=== PATIENT | male | born 1980 | race Two or more races ===

== ENCOUNTER 2020-06-26 12:06 | Inpatient (IN) | payer BC ==
[~2020-06-26] VITALS: Ht 167.6 cm; Wt 74.8 kg
--- NOTE | 2020-06-26 12:06 | NUR ---
PT BIBRA FROM HOME C/O ABDOMINAL PAIN AND NAUSEA/VOMITING STARTED YESTERDAY. PT IS AAOX4, NOT IN RESPIRATORY DISTRESS, HOOKED TO CARPENTRY TEACHER, KEPT RESTED AND COMFORTABLE. WILL CONTINUE TO MONITOR.
--- NOTE | 2020-06-26 12:13 | NUR ---
SEEN AND EXAMINED BY .
[2020-06-26] MEDS ORDERED: ONDANSETRON HCL/PF 4 MG/2 ML VIAL ONE (12:17)
--- NOTE | 2020-06-26 12:22 | NUR ---
IV LINE ESTABLISHED BLOOD DRAWN AND SENT TO LAB.
[2020-06-26] MEDS ORDERED: ONDANSETRON HCL/PF 4 MG/2 ML VIAL IVP ONE (12:30)
[2020-06-26] MEDS ORDERED: IV NS 0.9% 1,000 ML BAG IV ONE (12:30)
--- NOTE | 2020-06-26 12:32 | NUR ---
URINAL GIVEN BUT UNABLE TO PROVIDE URIEN SPECIMEN THIS TIME.
[2020-06-26 12:33] LABS: MONOCYTES # (AUTO) 0.4 /CMM (0.1-1.30); NEUTROPHILS # (AUTO) 3.1 /CMM (1.8-8.9)
[2020-06-26 12:45] LABS: ACETAMINOPHEN < 10 ug/ml (10-30); ALANINE AMINOTRANSFERASE 111 U/L (12-78); ALBUMIN 4.2 g/dL (3.4-5.0); ALCOHOL, BLOOD 146 mg/dL (0-0); ALKALINE PHOSPHATASE 106 U/L (46-116); ASPARTATE AMINOTRANSFERASE 167 U/L (15-37); BILIRUBIN,DIRECT 0.3 mg/dL (0.0-0.2); BILIRUBIN,TOTAL 1.2 mg/dL (0.2-1.0); CALCIUM, SERUM 8.8 mg/dL (8.5-10.1); CARBON DIOXIDE 14 mmol/L (21-32); CHLORIDE 95 mmol/L (98-107); CREATININE 1.1 mg/dL (0.6-1.3); GLUCOSE 76 mg/dL (74-106); POTASSIUM 3.6 mmol/L (3.5-5.1); SODIUM SERUM 137 mmol/L (136-145); UREA NITROGEN, BLOOD 9 mg/dL (7-18)
[2020-06-26] MEDS ORDERED: LORAZEPAM INJ 2 MG/ML VIAL IV ONE (13:00)
[2020-06-26 13:01] LABS: EOSINOPHILS % (AUTO) 0.1 % (0.0-6.0); HEMATOCRIT 45 % (39-51); HEMOGLOBIN 14.9 g/dL (13.5-17.5); LYMPHOCYTES # (AUTO) 0.4 /CMM (0.8-4.8); LYMPHOCYTES % (AUTO) 9.2 % (20.0-44.0); MEAN CORPUSCULAR HGB CONC 33 g/dl (31.0-36.0); MEAN CORPUSCULAR VOLUME 97 fL (80-96); MONOCYTES % (AUTO) 9.8 % (2.0-12.0); NEUTROPHILS % (AUTO) 79.9 % (43.0-81.0); PLATELET COUNT (AUTO) 101 /CMM (150-450); RED BLOOD CELL COUNT(AUTO) 4.63 MIL/uL (4.5-6.0); WHITE BLOOD COUNT (AUTO) 3.9 K/uL (4.3-11.0)
[2020-06-26] MEDS ORDERED: LORAZEPAM INJ 2 MG/ML VIAL ONE (13:12)
[2020-06-26] MEDS ORDERED: LAMO200T2 PO (13:21)
--- NOTE | 2020-06-26 13:46 | NUR ---
PANEL ON-CALL PAGED
[2020-06-26] MEDS ORDERED: MAGNESIUM HYDROXIDE 30 ML UDC PO PRN (14:30)
[2020-06-26] MEDS ORDERED: ACETAMINOPHEN 325 MG TABLET PO PRN (14:30)
[2020-06-26] MEDS ORDERED: MAG HYDROX/AL HYDROX/SIMETH 30 ML UDC PO PRN (14:30)
[2020-06-26] MEDS ORDERED: ONDANSETRON HCL/PF 4 MG/2 ML VIAL IVP PRN (14:30)
--- NOTE | 2020-06-26 14:56 | NUR ---
[facility] BED 304-1 ALEX IS RN
--- NOTE | 2020-06-26 14:56 | NUR ---
received a call from the ab regarding covid 19 result "negative".
[2020-06-26] MEDS ORDERED: CLONIDINE HCL 0.1 MG TABLET PO PRN (15:00)
--- NOTE | 2020-06-26 15:02 | NUR ---
REPORT GIVEN TO COURTNEY DALTON FOR MELANI.
[2020-06-26 15:13] LABS: BILIRUBIN,URINE Negative (NEGATIVE); COLOR,URINE YELLOW (YELLOW); LEUKOCYTE ESTERASE ,URINE Negative (NEGATIVE); NITRITE, URINE Negative (NEGATIVE); PH,URINE 5.5 (5.0-8.0); PROTEIN,URINE 30 mg/dl (NEGATIVE); UGLUCOSE Negative (NEGATIVE); UROBILINOGEN,URINE 0.2 EU/dL (0.2)
[2020-06-26 15:19] LABS: BACTERIA,URINE None seen /HPF (None Seen); HYALINE CASTS, URINE Few /LPF (None Seen); RBC,URINE 0-2 /HPF (0-2); SQUAMOUS EPITHELIAL CELL,UR Few /HPF (None Seen); WBC,URINE 0-2 /HPF (0-3)
[2020-06-26 15:40] VITALS: BP 145/68
--- NOTE | 2020-06-26 15:47 | NUR ---
MS EGG SETTER NOTE RECEIVED PATIENT VIA GURNEY. PATIENT IS A/O X 4. PATIENT IS BREATHING EVENLY AND UNLABORED ON ROOM AIR. NO SIGNS OF DISTRESS NOTED. PATIENT HAS IV ACCESS ON R HAND 20 GAUGE PATENT AND INTACT FLUIDS NS @75ML/HR. SKIN IS INTACT WITH SOME BRUISING PHOTOS TAKEN. PATIENT HAS SOME MILD SHAKING, BUT STATED IT HAS GOTTEN BETTER. PATIENT WAS ORIENTED TO THE ROOM AND HOW CALL LIGHT WORKS. BELONGINGS WERE ACCOUNTED FOR PEPPER SPRAY AND KNIFE PUT IN SAFE. SAFETY MEASURES ARE IN PLACE BED LOW LOCKED AND CALL LIGHT WITHIN REACH. WILL CONTINUE TO MONITOR
[2020-06-26] MEDS: FOLIC ACID 1 MG TABLET PO SCH (15:59)
[2020-06-26] MEDS: MULTIVITAMINS,THERAGRAN 1 UDTAB TABLET PO SCH (15:59)
[2020-06-26] MEDS: THIAMINE HCL 100 MG TABLET PO SCH (15:59)
[2020-06-26 16:38] VITALS: BP 145/68
[2020-06-26] MEDS: HYDROCODONE/APAP 5/325MG TABLET PO PRN ×2 (17:38→23:11)
--- NOTE | 2020-06-26 17:44 | NUR ---
RN NOTE PATIENT COMPLAINED OF PAIN IN THE RIGHT ANKLE 09/02. PRN PAIN MEDICATION WAS ADMINISTERED ORDER.
--- NOTE | 2020-06-26 18:31 | NUR ---
MS RN CLOSING NOTES PATIENT IS IN BED RESTING. PATIENT IS A/O X 4. PATIENT IS BREATHING EVENLY AND UNLABORED ON ROOM AIR. NO SIGNS OF DISTRESS NOTED. PATIENT HAS IV ACCESS ON R HAND 20 GAUGE PATENT AND INTACT FLUIDS NS @75ML/HR. SKIN IS INTACT WITH SOME BRUISING. PATIENT HAS SOME MILD SHAKING, BUT STATED IT HAS GOTTEN BETTER. PATIENT'S MEDICATION GIVEN AND NEEDS MET. SAFETY MEASURES ARE IN PLACE BED LOW LOCKED AND CALL LIGHT WITHIN REACH. WILL ENDORSE TO EVENING SHIFT
[2020-06-26 20:00] VITALS: BP 141/80
--- NOTE | 2020-06-26 20:01 | NUR ---
MS RN OPENING NOTE RECEIVED PT AWAKE IN BED. A/O X4. PT STABLE ON ROOM AIR. NO SOB NOTED. NO S/S OF RESPIRATORY DISTRESS. PT IS AMBULATORY WITH BRP. PT HAS NO C/O PAIN AT THIS TIME. IV ACCESS IN RIGHT HAND #20G, NS RUNNING @ 75 ML/HR. IV IS INTACT AND PATENT. SAFETY MEASURES MAINTAINED. BED IN LOWEST LOCKED POSITION, HOB ELEVATED, SIDE RAILS UP X2. CALL LIGHT AND TABLE WITHIN REACH. WILL CONTINUE WITH PLAN OF CARE.
--- NOTE | 2020-06-26 23:11 | NUR ---
MS RN PAIN PT C/O ACHING PAIN IN THE RIGHT ANKLE, RATED 6/10 ON PAIN SCALE. VS BP 140/81, HR 90, RR 19, T 99.1, SPO2 95%. PER PT REQUEST, ADMINISTERED NORCO 5-325 MG PO Q4H PRN AT THIS TIME. WILL CONTINUE TO MONITOR.
[2020-06-27] MEDS: LORAZEPAM INJ 2 MG/ML VIAL IV PRN ×3 (00:51→22:07)
[2020-06-27 05:59] LABS: BASOPHILS % (AUTO) 0.6 % (0.0-2.0); HEMATOCRIT 40 % (39-51); HEMOGLOBIN 13.4 g/dL (13.5-17.5); LYMPHOCYTES # (AUTO) 1.1 /CMM (0.8-4.8); LYMPHOCYTES % (AUTO) 25.9 % (20.0-44.0); MEAN CORPUSCULAR HGB CONC 33 g/dl (31.0-36.0); MEAN CORPUSCULAR VOLUME 97 fL (80-96); MONOCYTES # (AUTO) 0.4 /CMM (0.1-1.30); MONOCYTES % (AUTO) 10.7 % (2.0-12.0); NEUTROPHILS # (AUTO) 2.5 /CMM (1.8-8.9); NEUTROPHILS % (AUTO) 60.8 % (43.0-81.0); PLATELET COUNT (AUTO) 82 /CMM (150-450); RED BLOOD CELL COUNT(AUTO) 4.13 MIL/uL (4.5-6.0); WHITE BLOOD COUNT (AUTO) 4.1 K/uL (4.3-11.0)
--- NOTE | 2020-06-27 06:32 | NUR ---
MS RN CLOSING NOTE PT IS AWAKE IN BED AT THIS TIME. A/O X4. PT STABLE ON ROOM AIR. NO SOB NOTED. NO S/S OF RESPIRATORY DISTRESS. PT IS AMBULATORY WITH BRP. IV ACCESS IS INTACT AND PATENT. ALL NEEDS HAVE BEEN MET. PAIN MANAGEMENT ADMINISTERED PER ORDER. SAFETY MEASURES MAINTAINED. BED IN LOWEST LOCKED POSITION, HOB ELEVATED, SIDE RAILS UP X2. CALL LIGHT AND TABLE WITHIN REACH. WILL ENDORSE TO ONCOMING NURSE FOR CONTINUITY OF CARE.
[2020-06-27 07:46] LABS: ALBUMIN 3.4 g/dL (3.4-5.0); BILIRUBIN,TOTAL 1.7 mg/dL (0.2-1.0); CALCIUM, SERUM 8.6 mg/dL (8.5-10.1); CREATININE 0.9 mg/dL (0.6-1.3); MAGNESIUM 1.9 mg/dL (1.8-2.4); PHOSPHORUS 1.8 mg/dL (2.5-4.9); POTASSIUM 4.3 mmol/L (3.5-5.1); TOTAL PROTEIN, SERUM 6.6 g/dL (6.4-8.2)
[2020-06-27 08:00] VITALS: BP 143/79
[2020-06-27 08:11] LABS: THYROID STIMULATING HORMONE 1.15 uIU/mL (0.358-3.74)
[2020-06-27] MEDS: FOLIC ACID 1 MG TABLET PO SCH (08:27)
[2020-06-27] MEDS: MULTIVITAMINS,THERAGRAN 1 UDTAB TABLET PO SCH (08:27)
[2020-06-27] MEDS: THIAMINE HCL 100 MG TABLET PO SCH (08:27)
[2020-06-27] MEDS: LamoTRIgine 100 MG TABLET PO SCH (08:28)
--- NOTE | 2020-06-27 09:55 | NUR ---
MS RN NOTES IV SITE IV ACCESS IN RIGHT HAND #20G WAS OCCLUDED, DISCONTINUED ACCESS AND STARTED NEW ACCESS ON LEFT HAND #20G FLUSHED WITH NS.
[2020-06-27 10:15] LABS: BAND % (MANUAL) 5 % (0.0-5.0); EOSINOPHILS % (MANUAL) 3 % (0-4); LYMPHOCYTES % (MANUAL) 25 % (16-48); MONOCYTES % (MANUAL) 13 % (0-11.0); NEUTROPHILS % (MANUAL) 54 (42-76)
[2020-06-27] MEDS: HYDROCODONE/APAP 5/325MG TABLET PO PRN ×3 (11:32→20:41)
[2020-06-27] MEDS ORDERED: K PHOS NEUTRAL 250 MG TABLET PO ONE (12:30)
--- NOTE | 2020-06-27 14:11 | NUR ---
SS Consult: SS Consult requested for Alcohol Intoxication. The pt. is a 39-year-old male. DAINAL met with pt. bedside. The pt. is alert & oriented x 4. The pt. appears disheveled, dirt under nails with slight hand tremor. DANIAL completed alcohol intervention with pt. Pt. states he was sober for about 6 months and an old friend came into town 30 days ago and pt. has since relapsed as he began drinking with friend. Per pt., he drinks 1 liter of Vodka per day. Per pt. he has been an alcoholic for about 10 years. The pt. stated that he knows alcohol is a problem in his life and has affected his personal relationships (), work (hand tremors make it hard for him to draw) etc. DANIAL offered pt. rehab placement and pt. refused stating I need to put all my ducks in a row to do intensive program. SW offered outpatient programs pt. refused. DANIAL provided pt. with addiction resources & pt. accepted them. Pt. stated he will make his own arrangements with resources provided. DANIAL explored pt.s support system, living/ financial situation & mental health Hx. Pt. stated that his support system includes his mother, friend, Patricio [phone]. Per pt. he rents out a room at [address] [place] [address]. Pt. stated he has been receiving unemployment benefits since Feb 2020. Per pt. he has been diagnosed with Bipolar disorder & ADHD in the past and has been prescribed with Lamictal. Th pt. stated he would like to be discharge to home when medically cleared. DANIAL provided pt. with the following addiction & mental health resources and pt. accepted them: ADDICTION RESOURCES For Drugs and Alcohol [facility] Substance Abuse Helpline([facility] Outpatient treatment, residential treatment, recovery support for youth and adults [facility] www.actionfaWeMontage.Konnecti.com [facility] Teen programs for drug/alcohol education and support Xiao Naranjo [place]. Program for adults, sliding scale provides support and education [employer] www.C[employer].org [place]; Outpatient/residential treatment programs; transition to sober living [facility] www.cri-help.org [place]; Outpatient and residential treatment programs; transition to sober living [facility] Jonathan Albarran; Outpatient education and supportive programs for teens and adults [facility] www.oasiswomensrecovery.org [facility]; Residential treatment and work program for females only [facility] www.phoCibandoxbrewerton.org [place]: Outpatient/residential treatment program for teens and young adults [facility] www.[facility]ctors [facility].org [place] Detox, inpatient, outpatient for adults and youth [facility], [facility]. [place]; Outpatient programs and referrals to community residential programs. Alcoholics Anonymous -SFV information and meeting and schedules www.aa-intergroup.org Dh-Trzp-Hvmzbvt https://al-anon.org/ [place] support groups for family of alcoholics. Marijuana Anonymous www.madistrict6.org -sfv listing of meetings Narcotics Anonymous www.na.org SOBER LIVING RESOURCES The [facility]ber Living Network www.soberhousing.net A non-profit agency that provides resources to recovery and sober living homes throughout [facility] Sober Living Homes: A Work in ProgressPriti [facility], [facility] Jonathan Albarran Womens Sober Living Homes: [facility] x [phone] [place], [place] [facility] Coed Sober Living Homes: [facility] Counseling--Outpatient [facility] [address], [place] [address] (Specializes in in-depth psychotherapy for emotional distress: anxiety, depression, interpersonal conflicts, life transitions, childhood abuse) [facility] [address] [place] [address] (Assist with solving problem marital difficulties, separation & divorce, aging parents, & grief, chronic & terminal illness) [facility] [address] [place] [address] (Deal with loss & grief, anxiety, marital difficulties) Homebound/Mental Health Services [address] [facility] [address] [place] [address] (Provide in-home mental services to people who are incapable of leaving their homes) Organization for Needs of the Elderly Senior Service/Resource Center [address] [place] [address] [facility] [address] [place] [address] PSYCHIATRIC OUTPATIENT SERVICES [facility] Partial Hospitalization and Intensive Outpatient Program (Managed Care and [place] Only)[address] [facility] [phone] [facility] Partial Hospitalization and Outpatient Myinyww43359 [facility] [address] [place], [place] [phone] [facility] Partial Hospitalization and Outpatient Rcxqcgm0357 [place], [place] [phone] [facility] Eoz[address] [facility] [address] [place], [place] [phone] [facility] Partial Hospitalization and Outpatient Pxynhag42753 [facility] Jonathan AlbarranPORT JERV[place], [phone] Crisis and Hotline Telephone Numbers 24-Hour service unless stated [place] Crisis Hotlines: meXBT / [employer] Mental Health/Crisis Line........810.431.2476 Suicide Prevention Center (24 Hours).......[phone] Suicide Prevention Crisis Center.......[phone] (24 Hours) Assaults Against Women Hotline.........386.293.4061 (24 Hours -- [facility]) Women and Children Crisis Mcc...........[phone] (24 Hours) Child Abuse Hotline............831.270.2045 [facility] (24 Hours)..........[phone] Alcoholics Anonymous (24 Hours)..........[phone] Cocaine Anonymous (24 Hours)............[phone] Narcotics Anonymous (24 Hours)..........[phone] ELIZABETH CEBALLOS [facility] [address] [place] [address] Mental Health Services [address] [address] Services: Outpatient therapy for children, teens, young adults, adults, older adults, and families; Psychiatric services, medication support Crisis and Hotline Telephone Numbers 24-Hour service unless stated [place] Crisis Hotlines: [facility] Mental Health/Crisis Line........[phone] Suicide Prevention Center (24 Hours).......[phone] Suicide Prevention Crisis Center.......[phone] (24 Hours) Alcoholics Anonymous (24 Hours)..........388.220.2170 National Crisis Hotlines: Alcohol and Drug Helpline - Provides referrals to local facilities where adolescents and adults can seek help. Brief intervention. LAISHA Helpline National [place] for the Mentally Ill 9-069-996-CYOJ National Youth Crisis Hotline [facility] [facility] Provides free information on specific disorders, referral directory to mental health providers, national directory of local mental health associations (M-F, 9-5 EST) National [place] of Mental Health Information Line: Provide sinformation and literature on mental illness by disorder-for professionals and general public.
[2020-06-27 16:00] VITALS: BP 145/81
[2020-06-27] MEDS: CHLORDIAZEPOXIDE HCL 25 MG CAPSULE PO SCH (16:09)
[2020-06-27] MEDS: IV NS 0.9% 1,000 ML IV PRN (18:11)
[2020-06-27 18:39] VITALS: BP 145/81
--- NOTE | 2020-06-27 18:39 | NUR ---
MS RN CLOSING NOTE PT IS ALERT AND ORIENTED X4.. NO SOB NOTED, ON ROOM AIR. PT IS AMBULATORY WITH BRP. NEW IV SITE ON LEFT HAND IS INTACT AND PATENT. PRN PAIN MEDS GIVEN ORDERED. BED IN LOWEST LOCKED POSITION, HOB ELEVATED, SIDE RAILS UP X2. CALL LIGHT AND TABLE WITHIN REACH. WILL ENDORSE TO ONCOMING NURSE FOR CONTINUITY OF CARE.
--- NOTE | 2020-06-27 19:20 | NUR ---
MS/RN OPENING NOTE RECEIVED PATIENT RESTING IN BED. AWAKE, ALERT AND ORIENTED X 4. ABLE TO MAKE NEEDS KNOWN. NO COMPLAINTS OF PAIN AT THIS TIME. IV ACCESS TO LEFT HAND INTACT AND PATENT. CONTINUES ON IV NS @ 75ML/HR. CALL LIGHT WITHIN REACH. ASPIRATION, FALL AND SAFETY PRECAUTIONS MAINTAINED. WILL CONTINUE TO MONITOR.
[2020-06-27 20:00] VITALS: BP 135/82
--- NOTE | 2020-06-27 22:30 | NUR ---
MS/RN NOTE PATIENT WITH C/O TREMORS TO BILATERAL HANDS - REQUESTING ATIVAN PRN. ATIVAN ADMINISTERED WITH POSITIVE RESULT.
[2020-06-28] MEDS: HYDROCODONE/APAP 5/325MG TABLET PO PRN ×2 (05:13→12:08)
[2020-06-28 06:07] LABS: BASOPHILS % (AUTO) 1.1 % (0.0-2.0); EOSINOPHILS % (AUTO) 5.6 % (0.0-6.0); HEMATOCRIT 42 % (39-51); HEMOGLOBIN 14.4 g/dL (13.5-17.5); LYMPHOCYTES # (AUTO) 0.8 /CMM (0.8-4.8); LYMPHOCYTES % (AUTO) 30.6 % (20.0-44.0); MEAN CORPUSCULAR HGB CONC 34 g/dl (31.0-36.0); MEAN CORPUSCULAR VOLUME 97 fL (80-96); MONOCYTES # (AUTO) 0.3 /CMM (0.1-1.30); MONOCYTES % (AUTO) 11.5 % (2.0-12.0); NEUTROPHILS # (AUTO) 1.3 /CMM (1.8-8.9); NEUTROPHILS % (AUTO) 51.2 % (43.0-81.0); PLATELET COUNT (AUTO) 72 /CMM (150-450); RED BLOOD CELL COUNT(AUTO) 4.38 MIL/uL (4.5-6.0); WHITE BLOOD COUNT (AUTO) 2.5 K/uL (4.3-11.0)
--- NOTE | 2020-06-28 06:10 | NUR ---
MS/RN CLOSING NOTE PATIENT CURRENTLY SLEEPING IN BED. ALERT AND ORIENTED X 4. ABLE TO MAKE NEEDS KNOWN. NO COMPLAINTS OF PAIN AT THIS TIME. IV ACCESS TO LEFT HAND INTACT AND PATENT. CONTINUES ON IV NS @ 75ML/HR. CALL LIGHT WITHIN REACH. ASPIRATION, FALL AND SAFETY PRECAUTIONS MAINTAINED. WILL ENDORSE PLAN OF CARE TO ONCOMING SHIFT.
[2020-06-28 06:56] LABS: CALCIUM, SERUM 8.2 mg/dL (8.5-10.1); CREATININE 0.7 mg/dL (0.6-1.3); MAGNESIUM 1.9 mg/dL (1.8-2.4); PHOSPHORUS 2.4 mg/dL (2.5-4.9); POTASSIUM 3.2 mmol/L (3.5-5.1)
[2020-06-28 07:03] LABS: ALBUMIN 3.4 g/dL (3.4-5.0); BILIRUBIN,DIRECT 0.3 mg/dL (0.0-0.2); BILIRUBIN,TOTAL 1.1 mg/dL (0.2-1.0); TOTAL PROTEIN, SERUM 6.7 g/dL (6.4-8.2)
[2020-06-28] MEDS: IV NS 0.9% 1,000 ML IV PRN (07:05)
--- NOTE | 2020-06-28 07:30 | NUR ---
MS RN OPENING NOTE RECEIVED PT ASLEEP IN BED, BUT EASILY AWAKEN BY VERBAL STIMULI. A/O X4. PT STABLE ON ROOM AIR. NO SOB NOTED. NO S/S OF RESPIRATORY DISTRESS. PT IS AMBULATORY WITH BRP. PT HAS NO C/O PAIN AT THIS TIME. IV ACCESS ON LEFT HAND #20G, NS RUNNING @ 75 ML/HR. IV IS INTACT AND PATENT. SAFETY MEASURES MAINTAINED. BED IN LOWEST LOCKED POSITION, HOB ELEVATED, SIDE RAILS UP X2. CALL LIGHT AND TABLE WITHIN REACH. WILL CONTINUE TO MONITOR PATIENT.
[2020-06-28 08:00] VITALS: BP 143/95
[2020-06-28] MEDS: MULTIVITAMINS,THERAGRAN 1 UDTAB TABLET PO SCH (08:23)
[2020-06-28] MEDS: THIAMINE HCL 100 MG TABLET PO SCH (08:23)
[2020-06-28] MEDS: CHLORDIAZEPOXIDE HCL 25 MG CAPSULE PO SCH (08:23)
[2020-06-28] MEDS: LamoTRIgine 100 MG TABLET PO SCH (08:23)
[2020-06-28] MEDS: FOLIC ACID 1 MG TABLET PO SCH (08:23)
[2020-06-28 09:16] LABS: EOSINOPHILS % (MANUAL) 5 % (0-4); LYMPHOCYTES % (MANUAL) 31 % (16-48); MONOCYTES % (MANUAL) 10 % (0-11.0); NEUTROPHILS % (MANUAL) 54 (42-76)
[2020-06-28] MEDS ORDERED: POTASSIUM CHLORIDE 20 MEQ TAB.PRT.SR PO ONE (10:00)
[2020-06-28] MEDS: LORAZEPAM INJ 2 MG/ML VIAL IV PRN (12:08)
--- NOTE | 2020-06-28 16:58 | NUR ---
RN NOTES PATIENT IS ALERT AND ORIENTED X4. PATIENT IN ROOM AIR SATURATION 97%. PATIENT IN NO APPARENT RESPIRATORY DISTRESS NOTED. NO COMPLAINED OF PAIN NOTED. SEEN AND EXAMINED BY MD WITH ORDERS MADE AND CARRIED OUT. ALL DUE MEDICATIONS WAS GIVEN. DISCHARGED INSTRUCTIONS WAS GIVEN, PATIENT VERBALIZED UNDERSTANDING. TAP CARD WAS GIVEN. PATIENT LEFT IN A MEDICALLY STABLE CONDITION, AMBULATORY AND SELF CARE.
== END 2020-06-28 17:00 | disposition home or self-care (01) | DRG 897 ==
LOC: ER 12:09 → TELE 15:00 → MED 15:05
PROVIDERS: ADMIT Nurse Practitioner Acute Care; ATTEND Student in an Organized Health Care Education/Training Program
DX: F10.239 Alcohol dependence with withdrawal, unspecified (principal); F10.229 Alcohol dependence with intoxication, unspecified; Y90.6 Blood alcohol level of 120-199 mg/100 ml; I10 Essential (primary) hypertension; Z88.0 Allergy status to penicillin; R25.1 Tremor, unspecified; D75.89 Other specified diseases of blood and blood-forming organs; E80.6 Other disorders of bilirubin metabolism; R74.01 Elevation of levels of liver transaminase levels; S82.891S Other fracture of right lower leg, sequela; X58.XXXS Exposure to other specified factors, sequela
CPT/HCPCS: 36415; 73610-TC; 80048-TC; 80053-TC; 80061-TC; 80076-TC; 81001; 83735-TC; 84100-TC; 84443-TC; 85025-TC; 87081-TC; C9803; G0378; G0480; J2060; J2405; J7030

== ENCOUNTER 2020-08-21 09:22 | Emergency (ER) | payer BC ==
[~2020-08-21] VITALS: Ht 167.6 cm; Wt 74.8 kg
[~2020-08-21 09:22] MED LIST: LAMO200T2 PO
--- NOTE | 2020-08-21 09:22 | NUR ---
PT BIBRA 60 FROM HOME C/O TREMORS AND CHEST PAIN. POSSIBLE ALCOHOL WITHDRAWAL. PT IS AAOX3, NOT IN RESPIRATORY DISTRESS, HOOKED TO DATABASE TESTER, KEPT RESTED AND COMFORTABLE. WILL CONTINUE TO MONITOR.
[2020-08-21] MEDS ORDERED: LORAZEPAM INJ 2 MG/ML VIAL ONE (09:28)
[2020-08-21] MEDS ORDERED: LORAZEPAM INJ 2 MG/ML VIAL IVP ONE (09:30)
[2020-08-21] MEDS ORDERED: IV NS 0.9% 1,000 ML BAG IV ONE (09:30)
[2020-08-21 10:09] LABS: BASOPHILS # (AUTO) 0.1 K/uL (0.0-0.2); EOSINOPHILS % (AUTO) 0.3 % (0.0-6.0); HEMATOCRIT 46 % (39-51); HEMOGLOBIN 15.3 g/dL (13.5-17.5); LYMPHOCYTES # (AUTO) 1.1 K/uL (0.8-4.8); LYMPHOCYTES % (AUTO) 18.3 % (20.0-44.0); MEAN CORPUSCULAR HGB CONC 33 g/dl (31.0-36.0); MEAN CORPUSCULAR VOLUME 93 fL (80-96); MONOCYTES # (AUTO) 0.5 K/uL (0.1-1.30); MONOCYTES % (AUTO) 8.9 % (2.0-12.0); NEUTROPHILS # (AUTO) 4.2 K/uL (1.8-8.9); NEUTROPHILS % (AUTO) 71.5 % (43.0-81.0); PLATELET COUNT (AUTO) 245 K/uL (150-450); RED BLOOD CELL COUNT(AUTO) 4.91 MIL/uL (4.5-6.0); WHITE BLOOD COUNT (AUTO) 5.9 K/uL (4.3-11.0)
[2020-08-21 10:14] LABS: CALCIUM, SERUM 8.9 mg/dL (8.5-10.1); CARBON DIOXIDE 19 mmol/L (21-32); CHLORIDE 94 mmol/L (98-107); GLUCOSE 80 mg/dL (74-106); POTASSIUM 3.8 mmol/L (3.5-5.1); SODIUM SERUM 135 mmol/L (136-145); UREA NITROGEN, BLOOD 10 mg/dL (7-18)
[2020-08-21 10:20] LABS: ACETAMINOPHEN < 10 ug/ml (10-30); ALANINE AMINOTRANSFERASE 44 U/L (12-78); ALBUMIN 4.2 g/dL (3.4-5.0); ALCOHOL, BLOOD 136 mg/dL (0-0); ALKALINE PHOSPHATASE 79 U/L (46-116); ASPARTATE AMINOTRANSFERASE 41 U/L (15-37); BILIRUBIN,DIRECT 0.2 mg/dL (0.0-0.2); TOTAL PROTEIN, SERUM 8.2 g/dL (6.4-8.2)
[2020-08-21] MEDS ORDERED: CHLO25CA22 PO (10:40)
--- NOTE | 2020-08-21 10:55 | NUR ---
Acetylene Torch Burner consult: account services analyst consult requested for alcohol withdrawal. Patient is a 40-year-old, male. SW met with patient at his bedside in the emergency department. Patient was alert and oriented x4. Patient was calm and resting. Per chart, patient was brought in by ambulance from home on 08/21/20 with complaints of tremors and chest pain. Patient currently lives with roommates at [address] [place] [address]; [phone]. Patient is currently employed. Patient reported that he has a history of alcohol abuse and previously went to [facility] to detox. Patient reported that he recently started drinking alcohol within the last week after being sober for 40 days. Patient stated, Amy had 750 milliliters of alcohol for the last five days. Patient reported occasional marijuana use. SW assessed patients history of mental illness and patient reported history of Bipolar Disorder and stated that he has been prescribed Lamictal. Patient reported that he stopped taking the medication for some time but plans to start taking the medication again. Patient denied hallucinations or delusions. Patient denied suicidal or homicidal ideation. SW offered the patient alcohol and outpatient mental health resources. Patient accepted the resources and thanked DANIAL, stating that he will follow up independently. SW discussed discharge plan with the patient and patient stated that he will return to his prior living arrangement at home and can use public transportation. PLAN: Patient will return to his prior living arrangement at home. No further SS intervention at this time, however, SW will remain available as needed. RESOURCES: Counseling--Outpatient [facility] [address] [facility] [place] [address] (Specializes in in-depth psychotherapy for emotional distress: anxiety, depression, interpersonal conflicts, life transitions, childhood abuse) PSYCHIATRIC OUTPATIENT SERVICES [facility] Partial Hospitalization and Intensive Outpatient Program (Managed Care and [place] Only) [address] [facility] [phone] [facility] Partial Hospitalization and Outpatient Program [address] [place], [place] [phone] [facility] Partial Hospitalization and Outpatient Program [address] [facility] [place], [place] [phone] MILO DIETZ [facility] [employer] [address] [address] [facility] [place], [place] [phone] [facility] Partial Hospitalization and Outpatient Program [address] [facility] [place] [phone] Substance use resources provided included: [facility] Substance Abuse Self-Helpline (SAS) ; [facility]LP [address] [place] [address] ; [facility] [address] [facility] [address] ; [facility] [address] [address] ; [facility] [address] [facility] [address] ; [facility] [address] [facility] [address] ; [facility]; [facility] [place]; [place]; Alcoholics Anonymous -SFV
--- NOTE | 2020-08-21 11:08 | NUR ---
IV removed. Catheter intact and site benign. Pressure and 4x4 applied to site. No bleeding noted. Patient discharged to home in stable condition. Written and verbal after care instructions given. Patient verbalizes understanding of instruction.
[2020-08-21 11:09] VITALS: BP 139/77
== END 2020-08-21 11:09 | disposition home or self-care (01) ==
LOC: ER 09:27
DX: F10.239 Alcohol dependence with withdrawal, unspecified (principal); I10 Essential (primary) hypertension; Z88.1 Allergy status to other antibiotic agents; Z79.899 Other long term (current) drug therapy; Y90.6 Blood alcohol level of 120-199 mg/100 ml
CPT/HCPCS: 36415; 80048; 80076; 80143; 80320; 85025; 93005; 96361; 96374; 99284; J2060; J7030; G0480

== ENCOUNTER 2020-09-03 02:01 | Emergency (ER) | payer BC ==
[~2020-09-03] VITALS: Ht 167.6 cm; Wt 72.6 kg
[~2020-09-03 02:01] MED LIST changes: +CHLO25CA22 PO
--- NOTE | 2020-09-03 02:08 | NUR ---
PATIENT TO ER BED 12 BIBRA FROM HOME C/O ALCOHOL INTOXICATION. PATIENT STATES THAT HE TOOK 750MLs OF VODKA OVER THE PAST 3 DAYS. PATIENT IS ALERT AND ORIENTED x4. DENIES SHORTNESS OF BREATH. DENIES PAIN. CONNECTED TO THE MONITOR.
[2020-09-03] MEDS ORDERED: CHLORDIAZEPOXIDE HCL 25 MG CAPSULE ONE (02:26)
[2020-09-03] MEDS ORDERED: Thiamine 100 MG/ML VIAL ONE (02:26)
[2020-09-03] MEDS ORDERED: ONDANSETRON HCL/PF 4 MG/2 ML VIAL ONE (02:26)
[2020-09-03] MEDS ORDERED: ONDANSETRON HCL/PF 4 MG/2 ML VIAL IVP ONE (02:30)
[2020-09-03] MEDS ORDERED: CHLORDIAZEPOXIDE HCL 25 MG CAPSULE PO ONE (02:30)
[2020-09-03] MEDS ORDERED: Thiamine 100 MG in IV D5W 50 ML IV SCH (02:30)
[2020-09-03] MEDS ORDERED: IV NS 0.9% 1,000 ML BAG IV ONE (02:30)
[2020-09-03 02:34] LABS: BASOPHILS % (AUTO) 0.8 % (0.0-2.0); EOSINOPHILS % (AUTO) 0.5 % (0.0-6.0); HEMATOCRIT 42 % (39-51); HEMOGLOBIN 14.6 g/dL (13.5-17.5); LYMPHOCYTES # (AUTO) 1.4 K/uL (0.8-4.8); LYMPHOCYTES % (AUTO) 28.7 % (20.0-44.0); MEAN CORPUSCULAR HGB CONC 35 g/dl (31.0-36.0); MEAN CORPUSCULAR VOLUME 92 fL (80-96); MONOCYTES # (AUTO) 0.6 K/uL (0.1-1.30); MONOCYTES % (AUTO) 12.7 % (2.0-12.0); NEUTROPHILS # (AUTO) 2.8 K/uL (1.8-8.9); NEUTROPHILS % (AUTO) 57.3 % (43.0-81.0); PLATELET COUNT (AUTO) 286 K/uL (150-450); RED BLOOD CELL COUNT(AUTO) 4.58 MIL/uL (4.5-6.0); WHITE BLOOD COUNT (AUTO) 4.8 K/uL (4.3-11.0)
[2020-09-03 02:49] LABS: ALBUMIN 3.9 g/dL (3.4-5.0); BILIRUBIN,DIRECT 0.1 mg/dL (0.0-0.2); BILIRUBIN,TOTAL 0.4 mg/dL (0.2-1.0); CALCIUM, SERUM 8.6 mg/dL (8.5-10.1); CREATININE 1.2 mg/dL (0.6-1.3); POTASSIUM 3.6 mmol/L (3.5-5.1); TOTAL PROTEIN, SERUM 7.8 g/dL (6.4-8.2)
--- NOTE | 2020-09-03 05:11 | NUR ---
Patient discharged to home in stable condition. Written and verbal after care instructions given. Patient verbalizes understanding of instruction.
--- NOTE | 2020-09-03 05:12 | NUR ---
IV removed. Catheter intact and site benign. Pressure and 4x4 applied to site. No bleeding noted.
--- NOTE | 2020-09-03 05:20 | NUR ---
PATIENT IS AMBULATORY WITH A STEADY GAIT.
--- NOTE | 2020-09-03 05:20 | NUR ---
PATIENT IS PICKED UP BY EX-ROOMMATE, KIRILL.
[2020-09-03 05:54] VITALS: BP 139/88
== END 2020-09-03 05:55 | disposition home or self-care (01) ==
LOC: ER 02:02
DX: F10.20 Alcohol dependence, uncomplicated (principal); I10 Essential (primary) hypertension; Z88.1 Allergy status to other antibiotic agents; Z60.2 Problems related to living alone; Z79.899 Other long term (current) drug therapy; Y90.7 Blood alcohol level of 200-239 mg/100 ml
CPT/HCPCS: 36415; 71045; 80048; 80076; 80320; 85025; 93005; 96365; 96375; 99285; J2405; J3411 ×2; J7030; J7060 ×2; G0480

== ENCOUNTER 2020-10-25 14:29 | Inpatient (IN) | payer BC ==
[~2020-10-25] VITALS: Ht 167.6 cm; Wt 76.7 kg
--- NOTE | 2020-10-25 14:50 | NUR ---
TO ER BED 4, CHEST PAIN FOR 36HRS, NAUSEA AND VOMITNG UNABLE TO TOLERATE FLUIDS, A&OX4.
[2020-10-25] MEDS ORDERED: MAG HYDROX/AL HYDROX/SIMETH 30 ML UDC PO ONE (15:00)
[2020-10-25] MEDS ORDERED: FAMOTIDINE/PF INJ 20 MG/2 ML VIAL IV ONE ×2 (15:00→15:18)
[2020-10-25] MEDS ORDERED: LIDOCAINE VISCOUS 2% UD 15 ML UDC MM ONE (15:00)
[2020-10-25] MEDS ORDERED: IV NS 0.9% 1,000 ML BAG IV ONE ×2 (15:00→18:00)
[2020-10-25] MEDS ORDERED: MAG HYDROX/AL HYDROX/SIMETH 30 ML UDC ONE (15:17)
[2020-10-25] MEDS ORDERED: LIDOCAINE VISCOUS 2% UD 15 ML UDC ONE (15:17)
--- NOTE | 2020-10-25 15:36 | NUR ---
RING MAKER AT BEDSIDE
[2020-10-25 15:41] LABS: BASOPHILS % (AUTO) 0.5 % (0.0-2.0); EOSINOPHILS % (AUTO) 0.1 % (0.0-6.0); HEMATOCRIT 49 % (39-51); HEMOGLOBIN 16.4 g/dL (13.5-17.5); LYMPHOCYTES # (AUTO) 0.9 K/uL (0.8-4.8); LYMPHOCYTES % (AUTO) 12.4 % (20.0-44.0); MEAN CORPUSCULAR HGB CONC 34 g/dl (31.0-36.0); MEAN CORPUSCULAR VOLUME 93 fL (80-96); MONOCYTES # (AUTO) 0.4 K/uL (0.1-1.30); MONOCYTES % (AUTO) 4.9 % (2.0-12.0); NEUTROPHILS # (AUTO) 5.9 K/uL (1.8-8.9); NEUTROPHILS % (AUTO) 82.1 % (43.0-81.0); PLATELET COUNT (AUTO) 276 K/uL (150-450); RED BLOOD CELL COUNT(AUTO) 5.23 MIL/uL (4.5-6.0); WHITE BLOOD COUNT (AUTO) 7.2 K/uL (4.3-11.0)
[2020-10-25 15:57] LABS: CALCIUM, SERUM 9.6 mg/dL (8.5-10.1); CARBON DIOXIDE 17 mmol/L (21-32); CHLORIDE 95 mmol/L (98-107); CREATININE 1.2 mg/dL (0.6-1.3); GLUCOSE 83 mg/dL (74-106); SODIUM SERUM 138 mmol/L (136-145); UREA NITROGEN, BLOOD 10 mg/dL (7-18)
[2020-10-25 16:03] LABS: ALANINE AMINOTRANSFERASE 37 U/L (12-78); ALBUMIN 4.9 g/dL (3.4-5.0); ALKALINE PHOSPHATASE 102 U/L (46-116); ASPARTATE AMINOTRANSFERASE 29 U/L (15-37); BILIRUBIN,DIRECT 0.2 mg/dL (0.0-0.2); BILIRUBIN,TOTAL 0.7 mg/dL (0.2-1.0); LIPASE 87 U/L (73-393); TOTAL PROTEIN, SERUM 9.7 g/dL (6.4-8.2)
--- NOTE | 2020-10-25 17:05 | NUR ---
MOVE PACKET TURNED IN.
--- NOTE | 2020-10-25 17:29 | NUR ---
CALLED FOR COVID ANTIGEN SWAB, SPOKE TO NERI
[2020-10-25 17:37] LABS: ABG BASE EXCESS -12.5 mmol/L; ABG OXYGEN SATURATION 96.4 % (92.0-98.5); ABG PCO2 20.7 mmHg (35.0-45.0); ABG PH 7.337 (7.350-7.450); ABG PO2 95.8 mmHg (75.0-100.0); AaDO2 29.1 mmHg; COHb 0.1 % (0.5-1.5); MetHb 0.6 % (0.0-1.5); O2Hb 95.7 % (94.0-97.0); SITE, ABG Right Radial; VENT MODE, BG ROOM AIR
[2020-10-25] MEDS ORDERED: LEVOFLOXACIN 500 MG /D5W 100ML 500 MG/100 ML PIGGYBACK IV ONE (18:00)
--- NOTE | 2020-10-25 18:00 | NUR ---
COVID SWAB DONE AND SENT TO LAB
[2020-10-25] MEDS ORDERED: LEVOFLOXACIN 500 MG /D5W 100ML 100 ML IV ONE (18:08)
--- NOTE | 2020-10-25 18:11 | NUR ---
TAKEN TO CT
[2020-10-25] MEDS ORDERED: LEVETIRACETAM (500MG) 1,000 MG in IV NS 0.9% 100 ML IV SCH (18:30)
[2020-10-25] MEDS ORDERED: LORAZEPAM INJ 2 MG/ML VIAL ONE ×3 (18:30→23:00)
[2020-10-25] MEDS ORDERED: LORAZEPAM INJ 2 MG/ML VIAL IV ONE ×3 (18:30→23:00)
--- NOTE | 2020-10-25 19:50 | NUR ---
PT REC'D AWAKE, A/O X4 ABLE TO MAKE NEEDS KNOWN. VSS
--- NOTE | 2020-10-25 21:27 | NUR ---
pt is resting at this time, denies pain, denies chest pain. no s/s of sob or resp distress noted. vss. breathing even and unlabored. all needs attended at this time.
[2020-10-25] MEDS ORDERED: MAGNESIUM HYDROXIDE 30 ML UDC PO PRN (22:30)
[2020-10-25] MEDS ORDERED: ZOLPIDEM TARTRATE 5 MG TABLET PO PRN (22:30)
[2020-10-25] MEDS ORDERED: MAG HYDROX/AL HYDROX/SIMETH 30 ML UDC PO PRN (22:30)
[2020-10-25] MEDS ORDERED: Z GUARD REMEDY 2 OZ OINT TP PRN (22:30)
[2020-10-25] MEDS ORDERED: ACETAMINOPHEN 325 MG TABLET PO PRN (22:30)
[2020-10-25] MEDS ORDERED: ONDANSETRON HCL/PF 4 MG/2 ML VIAL IVP PRN (22:30)
[2020-10-25 22:53] LABS: ACETAMINOPHEN < 2 ug/ml (10-30)
[2020-10-26] MEDS: IV NS 0.9% 1,000 ML IV PRN ×3 (00:31→21:26)
--- NOTE | 2020-10-26 01:58 | NUR ---
pt able to ambulate to the bathroom, steady gait.
[2020-10-26 04:59] LABS: ALBUMIN 3.3 g/dL (3.4-5.0); BILIRUBIN,TOTAL 1.3 mg/dL (0.2-1.0); CALCIUM, SERUM 8.2 mg/dL (8.5-10.1); PHOSPHORUS 2.1 mg/dL (2.5-4.9); TOTAL PROTEIN, SERUM 6.6 g/dL (6.4-8.2)
[2020-10-26 05:16] LABS: BASOPHILS % (AUTO) 1.1 % (0.0-2.0); EOSINOPHILS % (AUTO) 0.5 % (0.0-6.0); HEMATOCRIT 38 % (39-51); HEMOGLOBIN 12.9 g/dL (13.5-17.5); LYMPHOCYTES # (AUTO) 1.3 K/uL (0.8-4.8); LYMPHOCYTES % (AUTO) 32.1 % (20.0-44.0); MEAN CORPUSCULAR HGB CONC 34 g/dl (31.0-36.0); MEAN CORPUSCULAR VOLUME 91 fL (80-96); MONOCYTES # (AUTO) 0.7 K/uL (0.1-1.30); MONOCYTES % (AUTO) 15.9 % (2.0-12.0); NEUTROPHILS # (AUTO) 2.1 K/uL (1.8-8.9); NEUTROPHILS % (AUTO) 50.4 % (43.0-81.0); PLATELET COUNT (AUTO) 180 K/uL (150-450); RED BLOOD CELL COUNT(AUTO) 4.13 MIL/uL (4.5-6.0); WHITE BLOOD COUNT (AUTO) 4.1 K/uL (4.3-11.0)
[2020-10-26 05:17] LABS: THYROID STIMULATING HORMONE 0.389 uIU/mL (0.358-3.74)
[2020-10-26] MEDS ORDERED: PANTOPRAZOLE 40 MG TABLET.DR PO ONE (06:31)
[2020-10-26] MEDS: PANTOPRAZOLE 40 MG TABLET.DR PO SCH (06:37)
[2020-10-26] MEDS ORDERED: LORAZEPAM INJ 2 MG/ML VIAL ONE ×3 (06:49→18:32)
[2020-10-26] MEDS: LORAZEPAM INJ 2 MG/ML VIAL IV PRN ×5 (06:50→23:40)
[2020-10-26 08:16] LABS: BAND % (MANUAL) 1 % (0.0-5.0); EOSINOPHILS % (MANUAL) 1 % (0-4); LYMPHOCYTES % (MANUAL) 36 % (16-48); MONOCYTES % (MANUAL) 11 % (0-11.0); NEUTROPHILS % (MANUAL) 51 (42-76)
--- NOTE | 2020-10-26 08:59 | NUR ---
RESTING COMFORTABLT IN BED, BREATHING EVEN AND UNLABORED
[2020-10-26] MEDS: KEPPRA 1000 MG in IV NS 100 ML IV SCH ×2 (09:56→21:26)
[2020-10-26] MEDS: LamoTRIgine 100 MG TABLET PO SCH (09:57)
[2020-10-26] MEDS ORDERED: SUCRALFATE 1 G/10 ML UDC ONE ×2 (14:32→16:58)
[2020-10-26] MEDS: SUCRALFATE 1 G/10 ML UDC PO SCH ×3 (14:37→22:09)
[2020-10-26] MEDS ORDERED: Sodium Phosphate 15 MMOL in IV NS 0.9% 250 ML IV ONE (15:00)
[2020-10-26] MEDS ORDERED: ACETAMINOPHEN 325 MG TABLET ONE (15:50)
--- NOTE | 2020-10-26 16:50 | NUR ---
AMBULATED TO THE BATHROOM
--- NOTE | 2020-10-26 20:29 | NUR ---
REPORT GIVEN TO COURTNEY VENTURA
--- NOTE | 2020-10-26 20:30 | NUR ---
TRANSFERRED PT UP TO 315-2 PER ACLS
[2020-10-26 20:40] VITALS: BP 149/97
--- NOTE | 2020-10-26 21:00 | NUR ---
Patient arrived at 2039 via gurney accompanied by RN and EMT. Patient guided to bed safely, tele monitor applied, safety measures in place. Patient is A&Ox4. VSS. Weighs 169 lbs. Denies feeling nauseous at this time. R hand #18G IV patent and and flushed. Patient reports mild/tolerable burning epigastric and stomach pain only at this time. Bowel sounds are hypoactive. Heart rate and rhythm regular upon auscultation. Lung sounds clear. No skin issues except scabbed over blister to lateral R ankle -no s/s of infection to site. Patient oriented to unit protocols and procedures.
--- NOTE | 2020-10-26 21:20 | NUR ---
MD pupil personnel services director said okay to advance diet to clear liquids if patient can tolerate -as patient requested.
[2020-10-26 21:55] VITALS: BP 149/97
--- NOTE | 2020-10-26 23:00 | NUR ---
Patient able to drink sips of cold water without feeling nauseous or vomiting.
--- NOTE | 2020-10-27 | NUR ---
Patient completely broke apart his own phone. When asked why patient states, "I was trying to fix it. It wouldn't charge. I broke the screen."
[2020-10-27 00:52] VITALS: BP 138/88
[2020-10-27] MEDS: LORAZEPAM INJ 2 MG/ML VIAL IV PRN ×3 (03:54→11:04)
[2020-10-27 04:05] VITALS: BP 141/89
[2020-10-27] MEDS: IV NS 0.9% 1,000 ML IV PRN (05:19)
--- NOTE | 2020-10-27 06:19 | NUR ---
ADVISORY SOFTWARE ENGINEER CLOSING NOTES Patient denies nausea overnight -no vomiting. tolerating small amount of clear liquids well. Reports side effects of withdrawal, but able to be managed with PRN Ativan. IVF currently infusing NS at 150cc/hr. tolerating well. no other issues. On monitor -Been SR with HR in the 70s overnight.
--- NOTE | 2020-10-27 07:06 | NUR ---
LANDSCAPING AND GROUNDSKEEPING LABORER OPENING NOTES RECEIVED PATIENT RESTING IN BED. PATIENT IS A/O X4, ABLE TO MAKE NEEDS KNOWN. PATIENT IS BREATHING EVENLY AND NONLABORED ON ROOM AIR. NO SIGNS OF DISTRESS NOTED. PATIENT DOES NOT COMPLAIN OF PAIN AT THIS TIME. PATIENT HAS IV ACCESS TO R HAND # 18 RUNNING NS @ 150ML/HR, PATENT AND INTACT. SAFETY AND SEIZURE PRECAUTIONS IN PLACE, BED LOW LOCKED, CALL LIGHT WITHIN REACH, SIDE RAILS UP PADDED. WILL CONTINUE TO MONITOR
[2020-10-27] MEDS: PANTOPRAZOLE 40 MG TABLET.DR PO SCH (07:35)
[2020-10-27] MEDS: SUCRALFATE 1 G/10 ML UDC PO SCH ×2 (08:13→12:12)
[2020-10-27] MEDS: LamoTRIgine 100 MG TABLET PO SCH (08:13)
[2020-10-27] MEDS: KEPPRA 1000 MG in IV NS 100 ML IV SCH (09:12)
[2020-10-27 10:35] VITALS: BP 129/81
[2020-10-27] MEDS ORDERED: SUCR1ORA6 PO (12:30)
[2020-10-27] MEDS ORDERED: PANT40TA49 PO (12:30)
[2020-10-27] MEDS ORDERED: LORA-259 PO (12:30)
--- NOTE | 2020-10-27 13:30 | NUR ---
TIER LIFT OPERATOR NOTE RECEIVED DISCHARGE ORDER. PATIENT IS A/O X4 ABLE TO MAKE NEEDS KNOWN. PATIENT IS BREATHING EVENLY AND NONLABORED ON ROOM AIR. PATIENT DOES NOT SHOW SIGNS OF DISTRESS. PATIENT WAS GIVEN DISCHARGE INSTRUCTIONS BOTH VERBALLY AND IN WRITTEN FORM. PATIENT VERBALIZED UNDERSTANDING. PATIENTS BELONGINGS ACCORDING TO THE BELONGINGS SHEET WAS ACCOUNTED FOR. PATIENT STATED OTHER BELONGINGS NOT ON SHEET WERE MISSING, CHARGE AND SECURITY STATED NO OTHER BELONGINGS WERE BROUGHT INTO HOSPITAL. IV ACCESS WAS REMOVED PRESSURE DRESSING APPLIED. ID BAND REMOVED. PATIENT LEFT IN STABLE CONDITION AMBULATING.
--- NOTE | 2020-10-27 13:57 | NUR ---
SS note: SS requested for ETOH use. Upon arrival to the med-surg unit, SW was notified that pt was D/C back to his prior living arrangement at home. No further SS intervention at this time. SW will remain available as needed.
== END 2020-10-27 13:20 | disposition home or self-care (01) | DRG 897 ==
LOC: ER 14:33 → TRANSITION 22:42 → UNDOADMIN 22:42 → MED 22:42 → TRANSITION 10-26 20:04 → TELE 10-26 20:04 → MED 10-27 09:06 → UNDODISIN 10-27 13:20
PROVIDERS: ADMIT Hospitalist; ATTEND Nurse Practitioner Acute Care
DX: F10.229 Alcohol dependence with intoxication, unspecified (principal); E87.2 Acidosis; F10.239 Alcohol dependence with withdrawal, unspecified; I10 Essential (primary) hypertension; G40.909 Epilepsy, unspecified, not intractable, without status epilepticus; Y90.6 Blood alcohol level of 120-199 mg/100 ml; F31.9 Bipolar disorder, unspecified; Z20.822 Contact with and (suspected) exposure to COVID-19; K76.0 Fatty (change of) liver, not elsewhere classified; K57.90 Diverticulosis of intestine, part unspecified, without perforation or abscess without bleeding
CPT/HCPCS: 36415; 36600; 70450-TC; 71045-TC; 80048-TC; 80053-TC; 80061-TC; 80076-TC; 80175; 82010-TC; 82550-TC; 82803-TC; 83605-TC; 83690-TC; 84100-TC; 84443-TC; 84484-TC; 85025-TC; 85378-TC; 87040-TC; 87081-TC; A9563; C9803; G0378; G0480; J1953; J1956; J2060; J2405; J3490; J7030; J7040; J7050